=== PATIENT | female | born 1985 | race Two or more races ===

== ENCOUNTER 2018-04-01 10:52 | Inpatient (IN) | payer SELFPAY ==
[~2018-04-01] VITALS: Ht 172.7 cm; Wt 103.9 kg
[2018-04-01] VITALS (13 sets, daily range): BP systolic 98–134; BP diastolic 47–101
[2018-04-01] MEDS ORDERED: IV NS 0.9% 1,000 ML BAG IV ONE (11:00)
--- NOTE | 2018-04-01 11:00 | NUR ---
BIBRA 79 DT SYNCOPAL EPISODE FROM WORK, PATIENT RECEIVED AWAKE, COMPLAING OFF FEELING WEAK, PATIENT APPEARS PALE, BP NOTED 73/43. PATIENT IS SATIGN WELL ON ROOM AIR. PER PATIENT SHE HAD AN A WEEK AGO. MD AT BEDSIDE
--- NOTE | 2018-04-01 11:42 | NUR ---
DR ARDEN WALLACE
--- NOTE | 2018-04-01 12:08 | NUR ---
RELL DERRICK AT
--- NOTE | 2018-04-01 12:14 | NUR ---
UNABLE TO REASSESS PAIN MEDICATION EFFECTIVENESS. PT WAS TAKEN TO OR
--- NOTE | 2018-04-01 12:15 | NUR ---
MD MARTINEZ AT BEDSIDE
--- NOTE | 2018-04-01 12:25 | NUR ---
Gabriel Altamirano MD IS NUT GRINDER [phone]
[2018-04-01 12:27] LABS: BASOPHILS % (AUTO) 0.3 % (0.0-2.0); EOSINOPHILS % (AUTO) 0.2 % (0.0-6.0); LYMPHOCYTES # (AUTO) 1.3 /CMM (0.8-4.8); LYMPHOCYTES % (AUTO) 9.1 % (20.0-44.0); MEAN CORPUSCULAR HEMOGLOBIN 32 PG (26.0-33.0); MEAN CORPUSCULAR HGB CONC 35 g/dl (31.0-36.0); MEAN CORPUSCULAR VOLUME 92 fL (82-100); MONOCYTES # (AUTO) 0.5 /CMM (0.1-1.30); MONOCYTES % (AUTO) 3.3 % (2.0-12.0); NEUTROPHILS # (AUTO) 12.1 /CMM (1.8-8.9); NEUTROPHILS % (AUTO) 87.1 % (43.0-81.0); PLATELET COUNT (AUTO) 63 /CMM (150-450); RED BLOOD CELL COUNT(AUTO) 2.16 MIL/uL (4.0-5.2); WHITE BLOOD COUNT (AUTO) 13.9 K/uL (4.3-11.0)
[2018-04-01] MEDS ORDERED: FENTANYL PF 100MCG/2ML AMPUL ONE (12:27)
[2018-04-01 12:29] LABS: HEMATOCRIT 20 % (33-45)
--- NOTE | 2018-04-01 12:29 | NUR ---
CALLED NURSING LABORER [employer] AND ASKED FOR AN ICU BED FOR THIS PT
[2018-04-01] MEDS ORDERED: FENTANYL PF 100MCG/2ML AMPUL IV ONE (12:30)
--- NOTE | 2018-04-01 12:41 | NUR ---
PATIENT WAS TAKEN TO OR
[2018-04-01] MEDS ORDERED: ANESTHESIA TRAY IN PYXIS 1 EA TRAY MC ONE (12:50)
[2018-04-01] MEDS ORDERED: ETOMIDATE 2 MG/ML VIAL ONE (12:56)
[2018-04-01] MEDS ORDERED: ALBUMIN 5% 250 ML IV ONE ×2 (13:14→13:16)
[2018-04-01] MEDS ORDERED: ALBUMIN 25% 50 ML IV ONE (13:14)
[2018-04-01 13:55] LABS: BAND % (MANUAL) 2 % (0.0-5.0); LYMPHOCYTES % (MANUAL) 5 % (16-48); MONOCYTES % (MANUAL) 1 % (0-11.0); NEUTROPHILS % (MANUAL) 92 (42-76)
[2018-04-01 14:28] LABS: ABG BASE EXCESS -7.7 mmol/L; ABG OXYGEN SATURATION 98.5 % (92.0-98.5); ABG PCO2 36.9 mmHg (35.0-45.0); ABG PH 7.304 (7.350-7.450); ABG PO2 312.5 mmHg (75.0-100.0); AaDO2 74.7 mmHg; COHb 0.3 % (0.5-1.5); O2Hb 97.2 % (94.0-97.0); SITE, ABG Right Radial
[2018-04-01] MEDS ORDERED: PROPOFOL 100 ML IV PRN (14:30)
[2018-04-01] MEDS ORDERED: ONDANSETRON HCL/PF 4 MG/2 ML VIAL IV PRN (14:30)
[2018-04-01] MEDS: HYDROMORPHONE INJ 2 MG/ML DISP.SYRIN IV PRN ×2 (14:33→20:09)
--- NOTE | 2018-04-01 14:46 | NUR ---
RT PATIENT REC'D POST OP ORALLY INTUBATED ON [facility]. POST XRAY ETT WAS RETRACTED PER RADIOLOGIST 2CM AND SECURED AT 24CM MID LIP. VENT SETTINGS SET PER MD ORDER. VENT ALARMS CHECKED AND AUDIBLE. CUFF PRESSURE CHECKED PYROTECHNICS PRESS TENDER. SX'D WITH NO SECRETIONS. B/S CLEAR. AMBU BAG AT [facility]. ABG DONE Addendum: 04/01/18 at 1450 by ANDREW ISAAC RT Amended: Links added.
--- NOTE | 2018-04-01 14:50 | NUR ---
ICU/RN: Bedside report from book shelver. Pt intubated, off sedation, following commands with no neuro deficits. Pt insisting on having tubes removed. Family at bedside for safety. Pending admission orders.
[2018-04-01] MEDS ORDERED: SODIUM BICARBONATE SYR 50 MEQ/50 ML DISP.SYRIN IV ONE (15:00)
--- NOTE | 2018-04-01 15:00 | NUR ---
ICU/RN: Dr Farris on the phone with Dr Hubbard regarding hospitalist consult.
--- NOTE | 2018-04-01 15:15 | NUR ---
ICU/RN: Dr Farris at bedside; updated on pt status. Awaiting repeat CBC results.
[2018-04-01] MEDS ORDERED: MORPHINE SULFATE INJ 2 MG/ML DISP.SYRIN IV PRN (15:30)
[2018-04-01] MEDS ORDERED: HYDROCODONE/APAP 5/325MG 1 EACH TABLET PO PRN (15:30)
[2018-04-01] MEDS ORDERED: MAGNESIUM HYDROXIDE 30 ML UDC PO PRN (15:30)
[2018-04-01] MEDS ORDERED: Z GUARD REMEDY 2 OZ OINT TP PRN (15:30)
[2018-04-01] MEDS ORDERED: MAG HYDROX/AL HYDROX/SIMETH 30 ML UDC PO PRN (15:30)
[2018-04-01] MEDS ORDERED: ZOLPIDEM TARTRATE 5 MG TABLET PO PRN (15:30)
[2018-04-01] MEDS: IV NS 0.9% 1,000 ML IV PRN (15:37)
[2018-04-01 15:51] LABS: HEMATOCRIT 37 % (33-45); HEMOGLOBIN 12.3 g/dL (11.5-14.8); LYMPHOCYTES # (AUTO) 0.4 /CMM (0.8-4.8); LYMPHOCYTES % (AUTO) 2.5 % (20.0-44.0); MEAN CORPUSCULAR HEMOGLOBIN 30 PG (26.0-33.0); MEAN CORPUSCULAR HGB CONC 33 g/dl (31.0-36.0); MEAN CORPUSCULAR VOLUME 91 fL (82-100); MONOCYTES # (AUTO) 0.6 /CMM (0.1-1.30); MONOCYTES % (AUTO) 3.4 % (2.0-12.0); NEUTROPHILS # (AUTO) 16.6 /CMM (1.8-8.9); NEUTROPHILS % (AUTO) 94.1 % (43.0-81.0); PLATELET COUNT (AUTO) 230 /CMM (150-450); RDW COEFFICIENT OF VARIATION 13.7 (11.5-15.0); RED BLOOD CELL COUNT(AUTO) 4.07 MIL/uL (4.0-5.2); WHITE BLOOD COUNT (AUTO) 17.6 K/uL (4.3-11.0)
[2018-04-01 16:11] LABS: ALBUMIN 3.3 g/dL (3.4-5.0); BILIRUBIN,TOTAL 1.1 mg/dL (0.2-1.0); CALCIUM, SERUM 8.7 mg/dL (8.5-10.1); CREATININE 0.7 mg/dL (0.6-1.3); POTASSIUM 4.4 mmol/L (3.5-5.1); TOTAL PROTEIN, SERUM 5.7 g/dL (6.4-8.2)
[2018-04-01 16:23] LABS: INR 0.93 (0.87-1.13)
--- NOTE | 2018-04-01 16:36 | NUR ---
RT PER DR BRAN PATIENT RAPIDLY WEANED AND EXTUBATED. PATIENT AWAKE ALERT NO SOB. PLACED ON 2L N/C. MOTHER AT BEDSIDE.
[2018-04-01] MEDS ORDERED: DC PROPOFOL WHEN EXTUBATED XX PRN (17:00)
--- NOTE | 2018-04-01 17:00 | NUR ---
ICU/RN: S/P extubation; awake, restless with strong gag reflex during CPAP trials, following commands and insisting on ETT removal. Pt emotional s/p recent and surgery while speaking with family, HR in 130's. Relaxation techniques encouraged.
[2018-04-01 18:34] LABS: MAGNESIUM 1.8 mg/dL (1.8-2.4)
--- NOTE | 2018-04-01 19:10 | NUR ---
ICU/RN: Pt resting in bed comfortably, no distress noted. Watching TV, slightly anxious. Care endorsed to PM RN for SUKHJINDER.
[2018-04-01] MEDS: PIPERACILLIN /TAZOBACTAM 4.5 G in IV D5W 50 ML IV SCH (19:53)
[2018-04-01] MEDS: ONDANSETRON HCL/PF 4 MG/2 ML VIAL IVP PRN (20:28)
--- NOTE | 2018-04-01 20:33 | NUR ---
ICE CREAM MAKER OPENING NOTES RECEIVED REPORT FROM ROYCE PEREZ. PATIENT A/A/O X3, ABLE TO MAKE NEEDS KNOWN. BREATHING EVEN & UNLABORED, TOLERATING O2 @ 3LPM VIA NC. DENIES SOB OR DIFFICULTY BREATHING. ON TELE W/ SINUS RHYTHM, SINUS TACH, HR 120. DENIES CHEST PAIN OR DISCOMFORT. RIGHT EJ IV #20, RIGHT HAND IV #18, RIGHT FOREARM IV #20 & LEFT UPPER ARM MIDLINE INTACT & PATENT W/ DRESSING CDI & IVF NS INFUSING WELL @ 150 ML/HR. C/O ABDOMINAL PAIN S/P ABDOMINAL SX. PAIN MED TO BE GIVEN. MORALES CATH IN PLACE & DRAINING YELLOW URINE. SAFETY MEASURES IN PLACE W/ CALL LIGHT WITHIN REACH & BED ALARM ON. INSTRUCTED TO CALL FOR ASSISTANCE. WILL CONTINUE TO MONITOR CLOSELY.
[2018-04-02] VITALS (16 sets, daily range): BP systolic 105–121; BP diastolic 51–88
[2018-04-02] MEDS: PIPERACILLIN /TAZOBACTAM 4.5 G in IV D5W 50 ML IV SCH ×4 (00:14→17:03)
[2018-04-02] MEDS: ACETAMINOPHEN 325 MG TABLET PO PRN ×3 (03:27→17:10)
--- NOTE | 2018-04-02 05:01 | NUR ---
HEAD HOUSEKEEPER NOTES OFFERED TO ASSIST W/ BED BATH BUT PATIENT REFUSED. PER PATIENT, SHE WANTS TO WAIT UNTIL MORNING.
[2018-04-02 05:03] LABS: BASOPHILS % (AUTO) 0.3 % (0.0-2.0); EOSINOPHILS % (AUTO) 0.1 % (0.0-6.0); HEMATOCRIT 29 % (33-45); HEMOGLOBIN 9.4 g/dL (11.5-14.8); LYMPHOCYTES # (AUTO) 1.1 /CMM (0.8-4.8); LYMPHOCYTES % (AUTO) 10.7 % (20.0-44.0); MEAN CORPUSCULAR HEMOGLOBIN 29 PG (26.0-33.0); MEAN CORPUSCULAR HGB CONC 32 g/dl (31.0-36.0); MEAN CORPUSCULAR VOLUME 91 fL (82-100); MONOCYTES # (AUTO) 0.8 /CMM (0.1-1.30); MONOCYTES % (AUTO) 7.6 % (2.0-12.0); NEUTROPHILS # (AUTO) 8.1 /CMM (1.8-8.9); NEUTROPHILS % (AUTO) 81.3 % (43.0-81.0); PLATELET COUNT (AUTO) 216 /CMM (150-450); RDW COEFFICIENT OF VARIATION 14.2 (11.5-15.0); RED BLOOD CELL COUNT(AUTO) 3.22 MIL/uL (4.0-5.2)
[2018-04-02 05:30] LABS: CREATININE 0.6 mg/dL (0.6-1.3); MAGNESIUM 1.9 mg/dL (1.8-2.4); PHOSPHORUS 3.7 mg/dL (2.5-4.9); POTASSIUM 4.4 mmol/L (3.5-5.1)
[2018-04-02] MEDS: IV NS 0.9% 1,000 ML IV PRN ×4 (06:16→22:47)
--- NOTE | 2018-04-02 07:38 | NUR ---
ELEVATOR INSPECTOR NOTES RECEIVED PATIENT A/A/O X3, ABLE TO MAKE NEEDS KNOWN. BREATHING EVEN & UNLABORED, TOLERATING O2 @ 3LPM VIA NC. DENIES SOB OR DIFFICULTY BREATHING. ON TELE W/ SINUS RHYTHM, DENIES CHEST PAIN OR DISCOMFORT. RIGHT EJ IV #20, RIGHT HAND IV #18,LEFT UPPER ARM MIDLINE INTACT & PATENT W/ DRESSING CDI & IVF NS INFUSING WELL @ 150 ML/HR. NO C/O ABDOMINAL PAIN S/P ABDOMINAL SX , MORALES CATH IN PLACE & DRAINING YELLOW PINK COLOR URINE. SAFETY MEASURES IN PLACE W/ CALL LIGHT WITHIN REACH & BED ALARM ON. INSTRUCTED TO CALL FOR ASSISTANCE. WILL CONTINUE TO MONITOR CLOSELY
--- NOTE | 2018-04-02 09:51 | NUR ---
DRY MOP MAKER NOTE OFFERED X2 TO GET OUT OFF BED ,PATIENT STATED LATTER ON WILL DO ,ALSO DIET CHANGED TO SOFT DIET PER MD ORDER
--- NOTE | 2018-04-02 13:00 | NUR ---
SENIOR PROFESSIONAL SERVICES CONSULTANT NOTE TRANSFERRED TO MED SURGE UNIT ORDERED WITH STABLE CONDITION
--- NOTE | 2018-04-02 13:11 | NUR ---
MS PEREZ NOTE RECEIVED PATIENT FROM ICU, ALERT ORIENTED, NO SOB NOTED ,ON O2 2L NC SAT 95% , MOTHER AT BEDSIDE BOTH LEGS WITH DVT PUMPS , WITH MORALES CATH TO GRAVITY WITH YELLOW COLOR URINE , LT UPPER ARM MID LINE ,ON IVF ORDERED ,WILL CONT TO MONITOR CLOSELY, CALL LIGHT WITHIN REACH Addendum: 04/02/18 at 1334 by SLOAN HERMAN RN MS PEREZ NOTE ABLE TO STAND UP WITH ASSISTANCE , ALL NEEDS ATTENDED ,WILL MONITOR CLOSELY
--- NOTE | 2018-04-02 15:18 | NUR ---
MS RN NOTE ROUND MADE ,FAMILY AT BEDSIDE, NO C\O PAIN OR DISCOMFORT AT THIS TIME ,ABDOMINAL DRESSING INTACT, NO ACTIVE BLEEDING NOTED ,WILL F\U
--- NOTE | 2018-04-02 15:58 | NUR ---
MS RN NOTE CALLED TO DR MARTINEZ NOTIFIED THAT PATIENT HAS MORALES AFTER SURGERY, OK TOP REMOVE, WILL CARRIED OUT ORDER
--- NOTE | 2018-04-02 16:25 | NUR ---
MS RN NOTE DR MARTINEZ AT BEDSIDE AWARE THAT T 99.2 PATIENT HAD ABDOMINAL CRAMP EARLIER OK TO GET OUT OFF BED
--- NOTE | 2018-04-02 16:36 | NUR ---
MS RN NOTE MORALES CATH REMOVED ORDERED BY DR MARTINEZ,DRESSING WAS REMOVED BY DOCTOR ,NO S\S INFECTION ON INCISION NOTED AT THIS TIME, LIAM INTACT
[2018-04-02] MEDS: ONDANSETRON HCL/PF 4 MG/2 ML VIAL IVP PRN ×2 (17:44→20:45)
--- NOTE | 2018-04-02 17:57 | NUR ---
MS RN NOTE C\O NAUSEA ZOFRAN 4 MG IVP GIVEN ORDERED ,WILL CONT TO MONITOR CLOSELY, FAMILY AT BEDSIDE
--- NOTE | 2018-04-02 20:00 | NUR ---
RN MS INITIAL NOTE RECEIVED PATIENT FROM ANA LISA, ALERT ORIENTED, NO SOB NOTED ,ON O2 2L NC SAT 100% , MOTHER AT BEDSIDE BOTH LEGS WITH DVT PUMPS , S/P F/C REMOVAL, DENIES ANY DISCOMFORT ON URINATION, BLADDER SOFT, NO DISTENTION NOTED. C/O NAUSEA, ZOFRAN GIVEN BY ROGER AT 1700, WILL GIVE PRN DOSE WHEN DUE. LT UPPER ARM MID LINE ,ON IVF ORDERED, NS@150ML/HR, WELL BREA , NO S/S OF FLUID EXCESS, WILL CONT TO MONITOR CLOSELY, CALL LIGHT WITHIN REACH
[2018-04-03] MEDS: PIPERACILLIN /TAZOBACTAM 4.5 G in IV D5W 50 ML IV SCH ×3 (00:10→11:29)
[2018-04-03 04:00] VITALS: BP 110/68
--- NOTE | 2018-04-03 06:05 | NUR ---
RN MS CLOSING NOTE ENDORSED PATIENT TO RN IN AM AOX4, NO SOB NOTED ,ON O2 2L NC SAT 100% , BOTH LEGS WITH DVT PUMPS , S/P F/C REMOVAL, BPR, AMBULATORY W/STABLE GAIT, CONTINENT FOR BOTH B&B. LT UPPER ARM MID LINE ,ON IVF ORDERED, NS@150ML/HR, WELL BREA , NO S/S OF FLUID EXCESS, PT FOR POSSIBLE D/C TODAY, WILL CONT TO MONITOR CLOSELY, CALL LIGHT WITHIN REACH
[2018-04-03] MEDS: IV NS 0.9% 1,000 ML IV PRN (06:47)
--- NOTE | 2018-04-03 07:34 | NUR ---
MS RN OPENING NOTE RECEIVED PT LAYING IN BED, SLEEPING COMFORTABLY. PT IS A/O X4, AFEBRILE. RESPIRATIONS ARE EVEN AND UNLABORED, NOT IN ANY ACUTE DISTRESS NOTED. PT DENIES ANY PAIN AT THIS TIME, NO C/O SOB, N/V. IV SITE INTACT, NO INFILTRATION NOTED. DRESSING KEPT CLEAN AND DRY. SAFETY MEASURES ARE IN PLACE. INSTRUCTED PT TO USE CALL LIGHT, CALL LIGHT IS LEFT WITHIN REACH. WILL CONTINUE TO MONITOR THROUGHOUT SHIFT FOR CONTINUITY OF CARE.
[2018-04-03 08:00] VITALS: BP 118/68
[2018-04-03 12:00] VITALS: BP 120/68
[2018-04-03] MEDS: ACETAMINOPHEN 325 MG TABLET PO PRN (13:40)
[2018-04-03] MEDS ORDERED: ONDANSETRON HCL/PF 4 MG/2 ML VIAL IV ONE (18:15)
--- NOTE | 2018-04-03 18:45 | NUR ---
MS PULLEY MAN NOTE PT DISCHARGED TO HOME VIA WHEELCHAIR IN STABLE CONDITION VIA PERSONAL VEHICLE WITH MOTHER GIL. PT IS A/O X4, AFEBRILE. RESPIRATIONS ARE EVEN AND UNLABORED, NOT IN ANY ACUTE DISTRESS NOTED. PT DENIES ANY PAIN AT THIS TIME, NO C/O SOB. ADMINISTERED ZOFRAN PRIOR TO LEAVING D/T X1 EMESIS. EXPLAINED DISCHARGE PAPERWORK TO PT AND MOTHER WITH VERBAL AND WRITTEN AGREEMENT. PHOTO TAKEN OF ABDOMINAL INCISION, PLACED IN CHART. INCISION REMAINS CLEAN AND DRY AND INTACT. IV ACCESS REMOVED, APPLIED PRESSURE AND TOLERATED. ID BANDS REMOVED. ALL BELONGINGS SENT WITH PT. PT DISCHARGED IN STABLE CONDITION ACCOMPANIED BY 2 STAFF.
== END 2018-04-03 18:30 | disposition home or self-care (01) | DRG 981 ==
LOC: MERGE 10:55 → ER 10:55 → ICU 12:44 → MEDSG1 04-02 12:35
PROVIDERS: ADMIT Obstetrics & Gynecology; ATTEND Obstetrics & Gynecology
PROC: B547ZZA Ultrasonography of Left Subclavian Vein, Guidance (ICD-10-PCS; principal; 2018-04-01 13:00)
PROC: 0BH17EZ Insertion of Endotracheal Airway into Trachea, Via Natural or Artificial Opening (ICD-10-PCS; principal; 2018-04-01 13:00)
PROC: 5A1935Z Respiratory Ventilation, Less than 24 Consecutive Hours (ICD-10-PCS; principal; 2018-04-01 13:00)
PROC: 0UB04ZZ Excision of Right Ovary, Percutaneous Endoscopic Approach (ICD-10-PCS; principal; 2018-04-01 13:00)
PROC: 30233N1 Transfusion of Nonautologous Red Blood Cells into Peripheral Vein, Percutaneous Approach (ICD-10-PCS; principal; 2018-04-01 13:00)
PROC: 0UB54ZZ Excision of Right Fallopian Tube, Percutaneous Endoscopic Approach (ICD-10-PCS; principal; 2018-04-01 13:00)
PROC: 05H633Z Insertion of Infusion Device into Left Subclavian Vein, Percutaneous Approach (ICD-10-PCS; principal; 2018-04-01 13:00)
DX: K66.1 Hemoperitoneum (principal); J96.00 Acute respiratory failure, unspecified whether with hypoxia or hypercapnia; O00.80 Other ectopic pregnancy without intrauterine pregnancy; D62 Acute posthemorrhagic anemia
CPT/HCPCS: 36415; 36600; 71045-TC; 80048-TC; 80053-TC; 80061-TC; 82803-TC; 83735-TC; 84100-TC; 84425; 84702-TC; 85025-TC; 85385-TC; 85610-TC; 85730-TC; 86850-TC; 86921-TC; 87040-TC; 87081-TC; 88305-TC; 94002-TC; 94799-TC; A4606; A6402; C1751; J0690; J1170; J2405; J2543; J3010; J3490; J7030; J7050; J7060; P9016-BL; P9045; P9047; Z7610

== ENCOUNTER 2021-10-07 13:09 | Inpatient (IN) | payer BC ==
[~2021-10-07] VITALS: Ht 175.3 cm; Wt 80.7 kg
--- NOTE | 2021-10-07 13:15 | NUR ---
TO ER BED 3, BIB SELF C/O "FOOD STUCK ON MY THROAT", PT STS SHE ATE BURGER BUT GOT STUCK, COULDN'T SWALLOW ANYTHING AFTER THAT, AAOX3, BREATHING EVEN AND NON LABORED, CONNECTED TO MONITOR
[2021-10-07] MEDS ORDERED: LORAZEPAM INJ 2 MG/ML VIAL ONE ×2 (13:51→17:51)
[2021-10-07] MEDS ORDERED: LORAZEPAM INJ 2 MG/ML VIAL IM ONE (14:00)
--- NOTE | 2021-10-07 14:07 | NUR ---
PT IS WHEELED TO CT SCAN VIA WHEELCHAIR.
--- NOTE | 2021-10-07 14:13 | NUR ---
CALLED AMIRA MACK [phone] ENGINEERING LIBRARIAN WILL BE PAGED.
[2021-10-07] MEDS ORDERED: GLUCAGON,HUMAN RECOMBINANT 1 MG/VIAL VIAL IV ONE (14:30)
[2021-10-07] MEDS ORDERED: WATER FOR INJECTION,STERILE 10 ML ONE (14:33)
[2021-10-07] MEDS ORDERED: GLUCAGON,HUMAN RECOMBINANT 1 MG/VIAL VIAL ONE (14:33)
--- NOTE | 2021-10-07 14:45 | NUR ---
SALINE LOCK ESTABLISHED, BLOOD DRAWN AND SENT TO LAB
[2021-10-07 14:55] LABS: BASOPHILS % (AUTO) 0.4 % (0.0-2.0); EOSINOPHILS % (AUTO) 2.2 % (0.0-6.0); HEMATOCRIT 41 % (33-45); HEMOGLOBIN 13.5 g/dL (11.5-14.8); LYMPHOCYTES # (AUTO) 1.3 K/uL (0.8-4.8); LYMPHOCYTES % (AUTO) 25.7 % (20.0-44.0); MEAN CORPUSCULAR HGB CONC 33 g/dl (31.0-36.0); MEAN CORPUSCULAR VOLUME 91 fL (82-100); MONOCYTES # (AUTO) 0.4 K/uL (0.1-1.30); MONOCYTES % (AUTO) 7.8 % (2.0-12.0); NEUTROPHILS # (AUTO) 3.2 K/uL (1.8-8.9); NEUTROPHILS % (AUTO) 63.9 % (43.0-81.0); PLATELET COUNT (AUTO) 278 K/uL (150-450); RED BLOOD CELL COUNT(AUTO) 4.48 MIL/uL (4.0-5.2); WHITE BLOOD COUNT (AUTO) 5.1 K/uL (4.3-11.0)
--- NOTE | 2021-10-07 14:57 | NUR ---
COVID SWAB DONE AND SENT TO LAB
[2021-10-07 15:08] LABS: CALCIUM, SERUM 9.1 mg/dL (8.5-10.1); CREATININE 0.7 mg/dL (0.6-1.3); POTASSIUM 4.7 mmol/L (3.5-5.1)
--- NOTE | 2021-10-07 15:23 | NUR ---
URINE COLLECTED AND SENT TO LAB
--- NOTE | 2021-10-07 15:32 | NUR ---
PER NURSE SUP, EGD AND FOREIGN BODY REMOVAL WILL BE AT 1840
--- NOTE | 2021-10-07 15:47 | NUR ---
[facility] CALLED NEEDLE LOOM TENDER PAGED.
[2021-10-07] MEDS ORDERED: ACETAMINOPHEN 325 MG TABLET PO PRN (17:00)
[2021-10-07] MEDS ORDERED: ONDANSETRON HCL/PF 4 MG/2 ML VIAL IVP PRN (17:00)
[2021-10-07] MEDS ORDERED: LORAZEPAM INJ 2 MG/ML VIAL IV PRN (17:00)
[2021-10-07] MEDS ORDERED: MAGNESIUM HYDROXIDE 30 ML UDC PO PRN (17:00)
[2021-10-07] MEDS ORDERED: MORPHINE SULFATE INJ 2 MG/ML DISP.SYRIN IV PRN (17:00)
[2021-10-07] MEDS ORDERED: MAG HYDROX/AL HYDROX/SIMETH 30 ML UDC PO PRN (17:00)
[2021-10-07] MEDS ORDERED: IV NS 0.9% 1,000 ML IV PRN (17:00)
[2021-10-07] MEDS ORDERED: Z GUARD REMEDY 4 OZ OINT TP PRN (17:00)
[2021-10-07 17:46] VITALS: BP 124/82
[2021-10-07] MEDS ORDERED: ANESTHESIA TRAY IN PYXIS 1 EA TRAY MC ONE (17:58)
--- NOTE | 2021-10-07 18:20 | NUR ---
WHEELED TO OR IN STABLE CONDITION
--- NOTE | 2021-10-07 18:53 | NUR ---
REPORT GIVEN TO MIKIE PEREZ FOR SUKHJINDER
--- NOTE | 2021-10-07 20:00 | NUR ---
BRANCH CONTROLLER NOTES RECEIVED PT VIA SYLVIA @9146, ACCOMPANIED BY 2 NURSES. AOx4, ABLE TO MAKE NEEDS KNOWN AND FAMILY PRESENT AT BEDSIDE. ON RA AND TOLERATING WELL. NO SOB NOTED. NO S/SX OF RESPIRATORY DISTRESS NOTED. IV ACCESS PRESENT. VITAL SIGNS STABLE: 115/78,94 BPM, 97% OXYGEN SATURATION, AND 18 RESPIRATIONS PER MINUTE. SAFETY PRECAUTIONS IN PLACE: BED IN LOWEST, LOCKED POSITION, SIDERAILS UPx2, AND BRAKES ON. TABLE AND CALL LIGHT WITHIN REACH. WILL CONTINUE TO MONITOR. RECEIVED ORDER FOR SOFT DIET VIA PAPER ORDER.
--- NOTE | 2021-10-07 22:00 | NUR ---
PT DISCHARGED WITH MOM @2150. LEFT VIA PRIVATE VEHICLE. REMOVED IV AND WRISTBAND. PT ABLE TO SWALLOW APPLE SAUCE AND WATER. TOLERATED WELL. PROVIDED PT WITH EDUCATION AND TOLD TO STAY ON SOFT DIET. PT AWARE OF FOLLOW UP WITH DR. MACK. VITAL SIGNS STABLE.
== END 2021-10-07 22:00 | disposition home or self-care (01) | DRG 392 ==
LOC: ER 13:11 → TRANSITION 15:34
PROVIDERS: ADMIT Internal Medicine; ATTEND Internal Medicine
PROC: 0DC58ZZ Extirpation of Matter from Esophagus, Via Natural or Artificial Opening Endoscopic (ICD-10-PCS; principal; 2021-10-07)
PROC: 0DB58ZX Excision of Esophagus, Via Natural or Artificial Opening Endoscopic, Diagnostic (ICD-10-PCS; 2021-10-07)
DX: K22.2 Esophageal obstruction (principal); T18.128A Food in esophagus causing other injury, initial encounter; X58.XXXA Exposure to other specified factors, initial encounter; Y93.89 Activity, other specified; Y92.009 Unspecified place in unspecified non-institutional (private) residence as the place of occurrence of the external cause; K29.70 Gastritis, unspecified, without bleeding; R13.10 Dysphagia, unspecified; Z20.822 Contact with and (suspected) exposure to COVID-19
CPT/HCPCS: 36415; 43235; 70490-TC; 71045-TC; 80048-TC; 84703-TC; 85025-TC; 85730-TC; 87081-TC; 88305-TC; 88313-TC; G0378; J0330; J1610; J2060; J2704; J2765; J3490; J7030